=== PATIENT | female | born 1945 ===

== ENCOUNTER 2022-02-20 10:34 | Inpatient (IN) | payer MEDICAID, MEDICARE ==
[2022-02-20] MEDS ORDERED: traZODone 50 MG TAB PO SCH (22:00)
[2022-02-20] MEDS: MELATONIN 5 MG TAB PO PRN (22:28)
--- NOTE | 2022-02-21 08:28 | History and Physical Report ---
GP History & Physical - History of Present Illness Date of admission: 02/20/22 Date of Examination: 02/21/22 Reason for Admission: Danger to self, Failure of Outpatient Treatment, Severe anxiety/depression History of Present Illness: The patient was seen today. She appears down and anxious. She is crying. She says she is not doing well. The patient says "my mind is racing." She also states she is hearing "a lot of noise and rumbling." The patient says she feels like she "should be ." She denies illicit drug use, and nicotine. The patient says she drinks occasionally. PAST PSYCHIATRIC HISTORY: Diagnoses: Major depressive disorder Suicide attempts or Self-harm behavior: Denies Prior psychiatric hospitalizations: Denies Substance Abuse history: Denies Previous psychiatric medications tried: xanax Outpatient treatment: Unknown PAST MEDICAL HISTORY: HTN Family Psychiatric History: None reported or documented SOCIAL HISTORY Marital Status: Living Arrangements: in daughter's basement Employment Status: Retired Access to guns/weapons: Denies Education: high school History of Abuse:Denies Legal History: Denies REVIEW OF SYSTEMS Constitutional: Negative for weight loss ENT: Negative for stridor Respiratory: Negative for cough or hemoptysis All other systems reviewed and are negative MENTAL STATUS EXAMINATION General Appearance and Behavior: Age appropriate, wearing appropriate clothes, cooperative, polite with questioning, good eye contact Cooperation: cooperative Psychomotor Behavior: Psychomotor normal Mood: Depressed, anxious Affect and affective range: congruent with stated affect, tearful Thought Process: Goal directed Thought Content: Reality oriented Speech: Normal volume, Regular rate and rhythm Suicidal Ideation: Yes Homicidal Ideation: Denies Hallucination: Denies Delusions: Auditory Impulse Control: Limited Insight and Judgment: Limited Memory: Intact Attention: distracted Orientation: Alert and oriented Diagnoses: Major Depressive Disorder Generalized Anxiety Disorder Treatment Plan Patient admitted for inpatient psychiatric evaluation, medication adjustment and close monitoring The patient's behavior, mood, sleep and appetite will be closely monitored. Patient enrolled in individual and group therapeutic sessions and encouraged to attend. Patient provided with a safe and structured environment. Patient's physical health needs will be addressed by the Hospitalist. Hospit [place] Consulted Labs including CBC, CMP, Lipid profile and Hemoglobin A1C levels ordered for baseline reference Social Assessment will be completed and the Podiatric Physician will work with patient and family to ensure a suitable and safe disposition Medication adjustment will be made as clinically indicated Continue home meds Start Buspar 7.5mg po BID Start Mirtazepine 7.5mg po qhs Start Abilify 5mg po daily Usual Wellness Religious/Preservation: - Start Trazodone 50 mg po QHS & 50 mg po QHS PRN between 10 PM & 2 AM for insomnia - Start Melatonin 5 mg po QHS to promote circadian rhythm The patient agreed on the treatment plan, understood the risk, benefit, alternative treatment, potential consequence of no treatment, and gave informed consent. Estimated days: 7 Post hospital care: primary care provider, psychiatric provider Case staffed with Dr. You Legal Status: Voluntary Reaction to Hospitalization: Accepting Medications and Allergies Allergies Allergy/AdvReac Type Severity Reaction Status Date / Time No Known Allergies Allergy Unverified 02/20/22 10:38 Home Medications Medication Instructions Recorded Confirmed Last Taken Type ALPRAZolam [Xanax TAB] 0.25 mg PO Q6HR PRN 02/20/22 02/20/22 Unknown History Escitalopram [Lexapro] 20 mg PO DAILY 02/20/22 02/20/22 Unknown History One-Daily Fvcrt-Rtw-Gjjk Tab 1 mg PO DAILY 02/20/22 02/20/22 Unknown History Vitamin D3 50 mcg PO DAILY 02/20/22 02/20/22 Unknown History amLODIPine [Norvasc] 10 mg PO DAILY 02/20/22 02/20/22 Unknown History Active Meds: Active Medications Alprazolam (Alprazolam 0.25 Mg Tab) 0.25 mg PO Q6H PRN PRN Reason: Anxiety Melatonin (Melatonin 5 Mg Tab) 5 mg PO QHS PRN PRN Reason: Sleep Last Admin: 02/20/22 22:28 Dose: 5 mg Trazodone HCl (Trazodone 50 Mg Tab) 50 mg PO QHS [facility] Last Admin: 02/20/22 22:28 Dose: 50 mg Results - Results Labs/Vitals: Last Vital Signs Temp 98.3 F 02/20/22 19:53 Pulse 65 02/20/22 19:53 Resp 18 02/20/22 19:53 BP 174/89 02/20/22 19:53 Pulse Ox 97 02/20/22 23:49 Physical Examination - Constitutional Vitals: Vital Signs Temp Pulse Resp BP Pulse Ox 98.3 F 65 18 174/89 97 02/20/22 19:53 02/20/22 19:53 02/20/22 19:53 02/20/22 19:53 02/20/22 23:49 Temperature -Last 24 Hours Temperature 98.3 F Temperature 98.6 F Mental Status Exam - Vital signs Last Vital Signs Temp 98.3 F 02/20/22 19:53 Pulse 65 02/20/22 19:53 Resp 18 02/20/22 19:53 BP 174/89 02/20/22 19:53 Pulse Ox 97 02/20/22 23:49 Physician Certification - Certification Statement Physician Certification Statement: This is an acknowledgement statement that SHMUEL BABB is a 76 year old F who requires inpatient psychiatric admission for treatment which could reasonably be expected to improve the patient's condition for Estimated period of time patient will need to remain in the hospital: [ ] Plan for post-hospital care: [ ]
[2022-02-21] MEDS: ALPRAZolam 0.25 MG TAB PO PRN (08:47)
[2022-02-21] MEDS: ARIPiprazole 5 MG TAB PO SCH (09:00)
[2022-02-21] MEDS: busPIRone 5 MG TAB PO SCH ×2 (09:00→21:12)
[2022-02-21] MEDS: CHOLECALCIFEROL (VIT D3) 1000 UNIT (25 mcg) TAB PO SCH (09:00)
[2022-02-21] MEDS: MULTIVITAMINS,THER W-MINERALS TAB PO SCH (09:00)
[2022-02-21] MEDS: amLODIPine 10 MG TAB PO SCH (09:01)
[2022-02-21] MEDS ORDERED: ESCITALOPRAM 10 MG TAB PO SCH (10:00)
[2022-02-21] MEDS: MELATONIN 5 MG TAB PO PRN (20:52)
[2022-02-21] MEDS: MIRTAZAPINE 15 MG TAB PO SCH (21:12)
--- NOTE | 2022-02-22 09:23 | Progress Note ---
Subjective Date of service: 02/22/22 Principal diagnosis: Major Depressive Disorder Subjective Comment: The patient was seen today. She says she feels a little better with the added meds. However, she says she just doesn't feel the Lexapro is longer effective. The patient says she's still having the racing thoughts. and feels depressed. She still endorses suicidal thoughts with no plan. She denies hallucinations. REVIEW OF SYSTEMS Constitutional: Negative for weight loss ENT: Negative for stridor Respiratory: Negative for cough or hemoptysis All other systems reviewed and are negative MENTAL STATUS EXAMINATION General Appearance and Behavior: Age appropriate, wearing appropriate clothes, cooperative, polite with questioning, good eye contact Cooperation: cooperative Psychomotor Behavior: Psychomotor normal Mood: Depressed, anxious Affect and affective range: congruent with stated affect, tearful Thought Process: Goal directed Thought Content: Reality oriented Speech: Normal volume, Regular rate and rhythm Suicidal Ideation: Yes Homicidal Ideation: Denies Hallucination: Denies Delusions: Auditory Impulse Control: Limited Insight and Judgment: Limited Memory: Intact Attention: distracted Orientation: Alert and oriented Diagnoses: Major Depressive Disorder Generalized Anxiety Disorder Treatment Plan Patient admitted for inpatient psychiatric evaluation, medication adjustment and close monitoring The patient's behavior, mood, sleep and appetite will be closely monitored. Patient enrolled in individual and group therapeutic sessions and encouraged to attend. Patient provided with a safe and structured environment. Patient's physical health needs will be addressed by the Hospitalist. Hospitalist Consulted Labs including CBC, CMP, Lipid profile and Hemoglobin A1C levels ordered for baseline reference Social Assessment will be completed and the Service Superintendent will work with patient and family to ensure a suitable and safe disposition Medication adjustment will be made as clinically indicated Wean Lexapro to 10mg po daily (will wean the patient off) Start Prozac 10mg po daily Buspar 7.5mg po BID Mirtazepine 7.5mg po qhs Abilify 5mg po daily Usual Wellness Jehovah'S Witness/Preservation: - Start Trazodone 50 mg po QHS & 50 mg po QHS PRN between 10 PM & 2 AM for insomnia - Start Melatonin 5 mg po QHS to promote circadian rhythm The patient agreed on the treatment plan, understood the risk, benefit, alternative treatment, potential consequence of no treatment, and gave informed consent. Estimated days: 7 Post hospital care: primary care provider, psychiatric provider Case staffed with Dr. You Medications and Allergies Allergies Allergy/AdvReac Type Severity Reaction Status Date / Time No Known Allergies Allergy Unverified 02/20/22 10:38 Home Medications Medication Instructions Recorded Confirmed Last Taken Type ALPRAZolam [Xanax TAB] 0.25 mg PO Q6HR PRN 02/20/22 02/20/22 Unknown History Escitalopram [Lexapro] 20 mg PO DAILY 02/20/22 02/20/22 Unknown History One-Daily Fkptb-Ndm-Nfwj Tab 1 mg PO DAILY 02/20/22 02/20/22 Unknown History Vitamin D3 50 mcg PO DAILY 02/20/22 02/20/22 Unknown History amLODIPine [Norvasc] 10 mg PO DAILY 02/20/22 02/20/22 Unknown History Active Meds: Active Medications Alprazolam (Alprazolam 0.25 Mg Tab) 0.25 mg PO Q6H PRN PRN Reason: Anxiety Last Admin: 02/21/22 08:47 Dose: 0.25 mg Amlodipine Besylate (Amlodipine 10 Mg Tab) 10 mg PO DAILY [facility] Last Admin: 02/21/22 09:01 Dose: 10 mg Aripiprazole (Aripiprazole 5 Mg Tab) 5 mg PO QDAY [facility] Last Admin: 02/21/22 09:00 Dose: 5 mg Buspirone HCl (Buspirone 5 Mg Tab) 7.5 mg PO BID [facility] Last Admin: 02/21/22 21:12 Dose: 7.5 mg Cholecalciferol (Cholecalciferol (Vit D3) 1000 Unit (25 Mcg) Tab) 2,000 unit PO DAILY [facility] Last Admin: 02/21/22 09:00 Dose: 2,000 unit Escitalopram Oxalate (Escitalopram 10 Mg Tab) 20 mg PO DAILY [facility] Last Admin: 02/21/22 09:00 Dose: 20 mg Melatonin (Melatonin 5 Mg Tab) 5 mg PO QHS PRN PRN Reason: Sleep Last Admin: 02/21/22 20:52 Dose: 5 mg Mirtazapine (Mirtazapine 15 Mg Tab) 7.5 mg PO QHS [facility] Last Admin: 02/21/22 21:12 Dose: 7.5 mg Multivitamins/Minerals (Multivitamins,Ther W-Minerals Tab) 1 each PO DAILY [facility] Last Admin: 02/21/22 09:00 Dose: 1 each Results - Results Labs/Vitals: Last Vital Signs Temp 98.0 F 02/21/22 08:07 Pulse 63 02/21/22 19:27 Resp 18 02/21/22 23:00 BP 157/87 02/21/22 19:27 Pulse Ox 97 02/22/22 08:38
[2022-02-22] MEDS: busPIRone 5 MG TAB PO SCH ×2 (09:50→21:12)
[2022-02-22] MEDS: CHOLECALCIFEROL (VIT D3) 1000 UNIT (25 mcg) TAB PO SCH (09:50)
[2022-02-22] MEDS: MULTIVITAMINS,THER W-MINERALS TAB PO SCH (09:50)
[2022-02-22] MEDS: ARIPiprazole 5 MG TAB PO SCH (09:51)
[2022-02-22] MEDS: amLODIPine 10 MG TAB PO SCH (09:51)
[2022-02-22] MEDS: ESCITALOPRAM 10 MG TAB PO SCH (09:53)
[2022-02-22] MEDS: FLUoxetine 10 MG TAB PO SCH (10:05)
[2022-02-22] MEDS: MELATONIN 5 MG TAB PO PRN (20:39)
[2022-02-22] MEDS: MIRTAZAPINE 15 MG TAB PO SCH (21:11)
[2022-02-23] MEDS: busPIRone 5 MG TAB PO SCH (09:40)
[2022-02-23] MEDS: amLODIPine 10 MG TAB PO SCH (09:42)
[2022-02-23] MEDS: ARIPiprazole 5 MG TAB PO SCH (09:43)
[2022-02-23] MEDS: FLUoxetine 10 MG TAB PO SCH ×2 (09:43→12:16)
[2022-02-23] MEDS: ESCITALOPRAM 10 MG TAB PO SCH ×2 (09:43→09:49)
[2022-02-23] MEDS: CHOLECALCIFEROL (VIT D3) 1000 UNIT (25 mcg) TAB PO SCH (09:43)
[2022-02-23] MEDS: MULTIVITAMINS,THER W-MINERALS TAB PO SCH (09:44)
--- NOTE | 2022-02-23 09:54 | Progress Note ---
Subjective Date of service: 02/23/22 Principal diagnosis: Major Depressive Disorder Subjective Comment: The patient was seen today. The patient says she's still depressed and having racing thoughts. She says she still hears the random sounds. She denies SI/HI. REVIEW OF SYSTEMS Constitutional: Negative for weight loss ENT: Negative for stridor Respiratory: Negative for cough or hemoptysis All other systems reviewed and are negative MENTAL STATUS EXAMINATION General Appearance and Behavior: Age appropriate, wearing appropriate clothes, cooperative, polite with questioning, good eye contact Cooperation: cooperative Psychomotor Behavior: Psychomotor normal Mood: Depressed, anxious Affect and affective range: congruent with stated affect, tearful Thought Process: Goal directed Thought Content: Reality oriented Speech: Normal volume, Regular rate and rhythm Suicidal Ideation: Yes Homicidal Ideation: Denies Hallucination: Denies Delusions: Auditory Impulse Control: Limited Insight and Judgment: Limited Memory: Intact Attention: distracted Orientation: Alert and oriented Diagnoses: Major Depressive Disorder Generalized Anxiety Disorder Treatment Plan Patient admitted for inpatient psychiatric evaluation, medication adjustment and close monitoring The patient's behavior, mood, sleep and appetite will be closely monitored. Patient enrolled in individual and group therapeutic sessions and encouraged to attend. Patient provided with a safe and structured environment. Patient's physical health needs will be addressed by the Hospitalist. Hospitalist Consulted Labs including CBC, CMP, Lipid profile and Hemoglobin A1C levels ordered for baseline reference Social Assessment will be completed and the Ballast Cleaning Machine Operator will work with patient and family to ensure a suitable and safe disposition Medication adjustment will be made as clinically indicated d/c Lexapro Increase Prozac 30mg po daily Increase Buspar 10mg po BID Mirtazepine 7.5mg po qhs Increase Abilify 10mg po daily Usual Wellness Congregational/Preservation: - Start Trazodone 50 mg po QHS & 50 mg po QHS PRN between 10 PM & 2 AM for insomnia - Start Melatonin 5 mg po QHS to promote circadian rhythm The patient agreed on the treatment plan, understood the risk, benefit, alternative treatment, potential consequence of no treatment, and gave informed consent. Estimated days: 7 Post hospital care: primary care provider, psychiatric provider Case staffed with Dr. You Medications and Allergies Allergies Allergy/AdvReac Type Severity Reaction Status Date / Time No Known Allergies Allergy Unverified 02/20/22 10:38 Home Medications Medication Instructions Recorded Confirmed Last Taken Type ALPRAZolam [Xanax TAB] 0.25 mg PO Q6HR PRN 02/20/22 02/20/22 Unknown History Escitalopram [Lexapro] 20 mg PO DAILY 02/20/22 02/20/22 Unknown History One-Daily Pmjcl-Stg-Zgxc Tab 1 mg PO DAILY 02/20/22 02/20/22 Unknown History Vitamin D3 50 mcg PO DAILY 02/20/22 02/20/22 Unknown History amLODIPine [Norvasc] 10 mg PO DAILY 02/20/22 02/20/22 Unknown History Active Meds: Active Medications Alprazolam (Alprazolam 0.25 Mg Tab) 0.25 mg PO Q6H PRN PRN Reason: Anxiety Last Admin: 02/21/22 08:47 Dose: 0.25 mg Amlodipine Besylate (Amlodipine 10 Mg Tab) 10 mg PO DAILY [facility] Last Admin: 02/23/22 09:42 Dose: 10 mg Aripiprazole (Aripiprazole 5 Mg Tab) 5 mg PO QDAY [facility] Last Admin: 02/23/22 09:43 Dose: 5 mg Buspirone HCl (Buspirone 5 Mg Tab) 7.5 mg PO BID [facility] Last Admin: 02/23/22 09:40 Dose: 7.5 mg Cholecalciferol (Cholecalciferol (Vit D3) 1000 Unit (25 Mcg) Tab) 2,000 unit PO DAILY [facility] Last Admin: 02/23/22 09:43 Dose: 2,000 unit Escitalopram Oxalate (Escitalopram 10 Mg Tab) 10 mg PO QDAY [facility] Last Admin: 02/23/22 09:49 Dose: Not Given Fluoxetine HCl (Fluoxetine 10 Mg Tab) 10 mg PO QDAY [facility] Last Admin: 02/23/22 09:43 Dose: 10 mg Melatonin (Melatonin 5 Mg Tab) 5 mg PO QHS PRN PRN Reason: Sleep Last Admin: 02/22/22 20:39 Dose: 5 mg Mirtazapine (Mirtazapine 15 Mg Tab) 7.5 mg PO QHS [facility] Last Admin: 02/22/22 21:11 Dose: 7.5 mg Multivitamins/Minerals (Multivitamins,Ther W-Minerals Tab) 1 each PO DAILY [facility] Last Admin: 02/23/22 09:44 Dose: 1 each Results - Results Labs/Vitals: Last Vital Signs Temp 98.3 F 02/23/22 07:30 Pulse 79 02/23/22 09:42 Resp 16 02/23/22 07:30 BP 154/91 02/23/22 09:42 Pulse Ox 96 02/23/22 07:30
[2022-02-23] MEDS ORDERED: ARIPiprazole 10 MG TAB PO SCH (10:00)
[2022-02-23] MEDS: busPIRone 10 MG TAB PO SCH ×2 (11:37→21:15)
[2022-02-23] MEDS ORDERED: FLUoxetine 10 MG TAB PO ONE (12:00)
[2022-02-23] MEDS ORDERED: ARIPiprazole 5 MG TAB PO ONE (12:00)
[2022-02-23] MEDS ORDERED: MAGNESIUM HYDROXIDE (MOM) ORAL LIQD UDC PO PRN (20:19)
[2022-02-23] MEDS: MIRTAZAPINE 15 MG TAB PO SCH (21:15)
[2022-02-23] MEDS: MELATONIN 5 MG TAB PO PRN (21:15)
[2022-02-24] MEDS ORDERED: ARIPiprazole 10 MG TAB PO SCH (09:27)
--- NOTE | 2022-02-24 09:27 | Progress Note ---
Subjective Date of service: 02/24/22 Principal diagnosis: Major Depressive Disorder Subjective Comment: The patient was seen today. She says she did not sleep well. The patient endorses hearing voices saying "run, run, run." She denies SI/HI. REVIEW OF SYSTEMS Constitutional: Negative for weight loss ENT: Negative for stridor Respiratory: Negative for cough or hemoptysis All other systems reviewed and are negative MENTAL STATUS EXAMINATION General Appearance and Behavior: Age appropriate, wearing appropriate clothes, cooperative, polite with questioning, good eye contact Cooperation: cooperative Psychomotor Behavior: Psychomotor normal Mood: Depressed, anxious Affect and affective range: congruent with stated affect, tearful Thought Process: Goal directed Thought Content: Reality oriented Speech: Normal volume, Regular rate and rhythm Suicidal Ideation: Denies Homicidal Ideation: Denies Hallucination: Denies Delusions: Auditory Impulse Control: Limited Insight and Judgment: Limited Memory: Intact Attention: distracted Orientation: Alert and oriented Diagnoses: Major Depressive Disorder Generalized Anxiety Disorder Treatment Plan Patient admitted for inpatient psychiatric evaluation, medication adjustment and close monitoring The patient's behavior, mood, sleep and appetite will be closely monitored. Patient enrolled in individual and group therapeutic sessions and encouraged to attend. Patient provided with a safe and structured environment. Patient's physical health needs will be addressed by the Hospitalist. Hospitalist Consulted Labs including CBC, CMP, Lipid profile and Hemoglobin A1C levels ordered for baseline reference Social Assessment will be completed and the Pneumatic Systems Operator will work with patient and family to ensure a suitable and safe disposition Medication adjustment will be made as clinically indicated Increased Mirtazepine 15mg po qhs Increased Abilify 15mg po daily Usual Wellness Yarsanism/Preservation: - Start Trazodone 50 mg po QHS & 50 mg po QHS PRN between 10 PM & 2 AM for insomnia - Start Melatonin 5 mg po QHS to promote circadian rhythm The patient agreed on the treatment plan, understood the risk, benefit, alternative treatment, potential consequence of no treatment, and gave informed consent. Estimated days: 7 Post hospital care: primary care provider, psychiatric provider Case staffed with Dr. You Medications and Allergies Allergies Allergy/AdvReac Type Severity Reaction Status Date / Time No Known Allergies Allergy Unverified 02/20/22 10:38 Home Medications Medication Instructions Recorded Confirmed Last Taken Type ALPRAZolam [Xanax TAB] 0.25 mg PO Q6HR PRN 02/20/22 02/20/22 Unknown History Escitalopram [Lexapro] 20 mg PO DAILY 02/20/22 02/20/22 Unknown History One-Daily Athdh-Jwe-Mccl Tab 1 mg PO DAILY 02/20/22 02/20/22 Unknown History Vitamin D3 50 mcg PO DAILY 02/20/22 02/20/22 Unknown History amLODIPine [Norvasc] 10 mg PO DAILY 02/20/22 02/20/22 Unknown History Active Meds: Active Medications Alprazolam (Alprazolam 0.25 Mg Tab) 0.25 mg PO Q6H PRN PRN Reason: Anxiety Last Admin: 02/21/22 08:47 Dose: 0.25 mg Amlodipine Besylate (Amlodipine 10 Mg Tab) 10 mg PO DAILY [facility] Last Admin: 02/23/22 09:42 Dose: 10 mg Aripiprazole (Aripiprazole 10 Mg Tab) 10 mg PO QDAY [facility] Last Admin: 02/23/22 12:16 Dose: Not Given Buspirone HCl (Buspirone 10 Mg Tab) 10 mg PO BID [facility] Last Admin: 02/23/22 21:15 Dose: 10 mg Cholecalciferol (Cholecalciferol (Vit D3) 1000 Unit (25 Mcg) Tab) 2,000 unit PO DAILY [facility] Last Admin: 02/23/22 09:43 Dose: 2,000 unit Fluoxetine HCl (Fluoxetine 10 Mg Tab) 30 mg PO QDAY [facility] Last Admin: 02/23/22 12:16 Dose: Not Given Magnesium Hydroxide (Magnesium Hydroxide (Mom) Oral Liqd Udc) 30 ml PO QDAY PRN PRN Reason: Constipation Last Admin: 02/23/22 20:58 Dose: 30 ml Melatonin (Melatonin 5 Mg Tab) 5 mg PO QHS PRN PRN Reason: Sleep Last Admin: 02/23/22 21:15 Dose: 5 mg Mirtazapine (Mirtazapine 15 Mg Tab) 7.5 mg PO QHS [facility] Last Admin: 02/23/22 21:15 Dose: 7.5 mg Multivitamins/Minerals (Multivitamins,Ther W-Minerals Tab) 1 each PO DAILY [facility] Last Admin: 02/23/22 09:44 Dose: 1 each Results - Results Labs/Vitals: Last Vital Signs Temp 99.1 F 02/23/22 19:49 Pulse 66 02/23/22 19:49 Resp 20 02/23/22 19:49 BP 156/86 02/23/22 19:49 Pulse Ox 96 02/23/22 19:49
[2022-02-24] MEDS: ARIPiprazole 15 MG TAB PO SCH (09:48)
[2022-02-24] MEDS: CHOLECALCIFEROL (VIT D3) 1000 UNIT (25 mcg) TAB PO SCH (09:49)
[2022-02-24] MEDS: busPIRone 10 MG TAB PO SCH ×2 (09:49→21:35)
[2022-02-24] MEDS: FLUoxetine 10 MG TAB PO SCH (09:49)
[2022-02-24] MEDS: amLODIPine 10 MG TAB PO SCH (09:49)
[2022-02-24] MEDS: MULTIVITAMINS,THER W-MINERALS TAB PO SCH (09:49)
--- NOTE | 2022-02-24 12:50 | Consultation ---
History of Present Illness - Reason for Consult Consult date: 02/23/22 Medical Management Requesting physician: MARGO BERMEO - History of Present Illness 76 YO Female with Vascular Dementia with Behavioral disturbance, Cerebral Atherosclerosis, Obesity Hypoventilation Syndrome, HTN, KEVIN, MDD admitted to [facility] for psychiatric stabilization. Consult placed by Dr. Bermeo for medical management. Patient seen and evaluated in the recreation room. Patient denies fever, chills, chest pain, palpitation, productive cough, skin rash, recent contact, known exposure to COVID-19. Patient resting calmly. No reported nursing events. Patient appears to be at baseline level of cognition and function. Past History Past Medical History: hypertension, other (See HPI) Past Surgical History: No surgical history, Other (Reviewed) Social history: single. denies: smoking, alcohol abuse, prescription drug abuse Family history: hypertension Medications and Allergies Allergies Allergy/AdvReac Type Severity Reaction Status Date / Time No Known Allergies Allergy Unverified 02/20/22 10:38 Home Medications Medication Instructions Recorded Confirmed Last Taken Type ALPRAZolam [Xanax TAB] 0.25 mg PO Q6HR PRN 02/20/22 02/20/22 Unknown History Escitalopram [Lexapro] 20 mg PO DAILY 02/20/22 02/20/22 Unknown History One-Daily Bkaon-Ntx-Fzcs Tab 1 mg PO DAILY 02/20/22 02/20/22 Unknown History Vitamin D3 50 mcg PO DAILY 02/20/22 02/20/22 Unknown History amLODIPine [Norvasc] 10 mg PO DAILY 02/20/22 02/20/22 Unknown History Active Meds: Active Medications Alprazolam (Alprazolam 0.25 Mg Tab) 0.25 mg PO Q6H PRN PRN Reason: Anxiety Last Admin: 02/21/22 08:47 Dose: 0.25 mg Amlodipine Besylate (Amlodipine 10 Mg Tab) 10 mg PO DAILY [facility] Last Admin: 02/24/22 09:49 Dose: 10 mg Aripiprazole (Aripiprazole 15 Mg Tab) 15 mg PO QDAY [facility] Last Admin: 02/24/22 09:48 Dose: 15 mg Buspirone HCl (Buspirone 10 Mg Tab) 10 mg PO BID [facility] Last Admin: 02/24/22 09:49 Dose: 10 mg Cholecalciferol (Cholecalciferol (Vit D3) 1000 Unit (25 Mcg) Tab) 2,000 unit PO DAILY [facility] Last Admin: 02/24/22 09:49 Dose: 2,000 unit Fluoxetine HCl (Fluoxetine 10 Mg Tab) 30 mg PO QDAY [facility] Last Admin: 02/24/22 09:49 Dose: 30 mg Magnesium Hydroxide (Magnesium Hydroxide (Mom) Oral Liqd Udc) 30 ml PO QDAY PRN PRN Reason: Constipation Last Admin: 02/23/22 20:58 Dose: 30 ml Melatonin (Melatonin 5 Mg Tab) 5 mg PO QHS PRN PRN Reason: Sleep Last Admin: 02/23/22 21:15 Dose: 5 mg Mirtazapine (Mirtazapine 15 Mg Tab) 15 mg PO QHS [facility] Multivitamins/Minerals (Multivitamins,Ther W-Minerals Tab) 1 each PO DAILY [facility] Last Admin: 02/24/22 09:49 Dose: 1 each Review of Systems Constitutional: no weight loss, no weight gain, no fever, no chills Ears, nose, mouth and throat: no ear pain, no ear discharge, no tinnitis, no decreased hearing, no nose pain Breasts: no change in shape, no swelling, no mass Cardiovascular: no chest pain, no orthopnea, no palpitations, no rapid/irregular heart beat, no edema, no syncope Respiratory: no cough, no cough with sputum, no hemoptysis, no dyspnea on exertion Gastrointestinal: no nausea, no vomiting, no diarrhea, no constipation, no change in bowel habits Genitourinary Female: no pelvic pain, no flank pain, no dysuria, no urgency, no stress incontinence Rectal: no pain, no incontinence, no bleeding Musculoskeletal: no neck stiffness, no neck pain, no shooting arm pain, no arm numbness/tingling, no low back pain Integumentary: no rash, no pruritis, no redness, no sores, no wounds Neurological: no head injury, no transient paralysis, no paralysis, no parathesias, no numbness, no tingling, no seizures Psychiatric: depression, anxiety attacks, irritability, sadness/tearfullness, mood swings Endocrine: no cold intolerance, no heat intolerance, no polyphagia, no excessive thirst, no polydipsia, no polyuria Hematologic/Lymphatic: no easy bruising, no easy bleeding Allergic/Immunologic: no urticaria, no allergic rhinitis, no wheezing Exam - Constitutional Vitals: Temp Pulse Resp BP Pulse Ox 99.0 F 71 18 113/75 97 02/24/22 08:14 02/24/22 09:49 02/24/22 08:14 02/24/22 09:49 02/24/22 08:14 General appearance: Present: mild distress, obese - EENT Eyes: Present: PERRL ENT: hearing intact, clear oral mucosa - Neck Neck: Present: supple, normal ROM - Respiratory Respiratory effort: normal Respiratory: bilateral: CTA - Cardiovascular Heart Sounds: Present: S1 & S2. Absent: rub, click - Extremities Extremities: pulses symmetrical, No edema Peripheral Pulses: within normal limits - Abdominal General gastrointestinal: Present: soft, non-tender, non-distended, normal bowel sounds Female genitourinary: Present: normal - Integumentary Integumentary: Present: clear, warm, dry - Musculoskeletal Musculoskeletal: gait normal, strength equal bilaterally - Psychiatric Psychiatric: appropriate mood/affect, intact judgment & insight - Neurologic Neurologic: CNII-XII intact, moves all extremities Assessment and Plan - Patient Problems (1) Vascular dementia with behavioral disturbance Current Visit: Yes Status: Acute Plan to address problem: Verbal prompting, verbal redirection, benzodiazepine therapy as clinically indicated. (2) Cerebral atherosclerosis Current Visit: Yes Status: Acute Plan to address problem: Risk factor reduction, antiplatelet therapy as clinically indicated. (3) Hypertension Current Visit: Yes Status: Acute Qualifiers: Hypertension type: primary hypertension Qualified Code(s): I10 - Essential (primary) hypertension Plan to address problem: Monitor blood pressure every shift, continue medical management. (4) Obesity hypoventilation syndrome Current Visit: Yes Status: Acute Plan to address problem: Balanced diet, increase physical activity at discharge, outpatient pulmonary follow-up for sleep study. (5) KEVIN (generalized anxiety disorder) Current Visit: Yes Status: Acute Plan to address problem: Verbal prompting, benzodiazepine therapy as clinically indicated. (6) Major depressive disorder Current Visit: Yes Status: Acute Qualifiers: Major depression episode severity: unspecified Plan to address problem: Continue medical management, supportive care. (7) Advance care planning Current Visit: Yes Status: Acute Plan to address problem: Disease education data, care plan discussed, diagnoses discussed, prognosis discussed, patient is full code. Patient acknowledged understanding and agreement with care plan, +30 minutes. (8) Preventative health care Current Visit: Yes Status: Acute Plan to address problem: Patient counseled regarding risk factor reduction, balanced diet, increase physical activity discharge, medication compliance, outpatient follow-up with primary care physician for all age and risk factor appropriate screening test. +30 minutes.
[2022-02-24] MEDS: MIRTAZAPINE 15 MG TAB PO SCH (21:35)
[2022-02-24] MEDS: MELATONIN 5 MG TAB PO PRN (21:38)
[2022-02-25] MEDS: FLUoxetine 10 MG TAB PO SCH ×2 (09:35→09:44)
[2022-02-25] MEDS: MULTIVITAMINS,THER W-MINERALS TAB PO SCH (09:37)
[2022-02-25] MEDS: amLODIPine 10 MG TAB PO SCH (09:37)
[2022-02-25] MEDS: busPIRone 10 MG TAB PO SCH ×2 (09:38→21:03)
[2022-02-25] MEDS: ARIPiprazole 15 MG TAB PO SCH (09:38)
[2022-02-25] MEDS: CHOLECALCIFEROL (VIT D3) 1000 UNIT (25 mcg) TAB PO SCH (09:39)
--- NOTE | 2022-02-25 10:59 | Progress Note ---
Subjective Date of service: 02/25/22 Principal diagnosis: Major Depressive Disorder Subjective Comment: The patient was seen today. She says she's starting to feel better. She denies SI/HI or hallucinations. The patient says "I'm just not sleeping well." REVIEW OF SYSTEMS Constitutional: Negative for weight loss ENT: Negative for stridor Respiratory: Negative for cough or hemoptysis All other systems reviewed and are negative MENTAL STATUS EXAMINATION General Appearance and Behavior: Age appropriate, wearing appropriate clothes, cooperative, polite with questioning, good eye contact Cooperation: cooperative Psychomotor Behavior: Psychomotor normal Mood: Depressed, anxious Affect and affective range: congruent with stated affect, tearful Thought Process: Goal directed Thought Content: Reality oriented Speech: Normal volume, Regular rate and rhythm Suicidal Ideation: Denies Homicidal Ideation: Denies Hallucination: Denies Delusions: Denies Impulse Control: Limited Insight and Judgment: Limited Memory: Intact Attention: distracted Orientation: Alert and oriented Diagnoses: Major Depressive Disorder Generalized Anxiety Disorder Treatment Plan Patient admitted for inpatient psychiatric evaluation, medication adjustment and close monitoring The patient's behavior, mood, sleep and appetite will be closely monitored. Patient enrolled in individual and group therapeutic sessions and encouraged to attend. Patient provided with a safe and structured environment. Patient's physical health needs will be addressed by the Hospitalist. Hospitalist Consulted Labs including CBC, CMP, Lipid profile and Hemoglobin A1C levels ordered for baseline reference Social Assessment will be completed and the Portable Irrigation Operator will work with patient and family to ensure a suitable and safe disposition Medication adjustment will be made as clinically indicated Increase Melatonin 10mg po qhs prn insomnia The patient agreed on the treatment plan, understood the risk, benefit, alternative treatment, potential consequence of no treatment, and gave informed consent. Estimated days: 7 Post hospital care: primary care provider, psychiatric provider Case staffed with Dr. You Medications and Allergies Allergies Allergy/AdvReac Type Severity Reaction Status Date / Time No Known Allergies Allergy Unverified 02/20/22 10:38 Home Medications Medication Instructions Recorded Confirmed Last Taken Type ALPRAZolam [Xanax TAB] 0.25 mg PO Q6HR PRN 02/20/22 02/20/22 Unknown History Escitalopram [Lexapro] 20 mg PO DAILY 02/20/22 02/20/22 Unknown History One-Daily Ugfsm-Dcg-Gamc Tab 1 mg PO DAILY 02/20/22 02/20/22 Unknown History Vitamin D3 50 mcg PO DAILY 02/20/22 02/20/22 Unknown History amLODIPine [Norvasc] 10 mg PO DAILY 02/20/22 02/20/22 Unknown History Active Meds: Active Medications Alprazolam (Alprazolam 0.25 Mg Tab) 0.25 mg PO Q6H PRN PRN Reason: Anxiety Last Admin: 02/21/22 08:47 Dose: 0.25 mg Amlodipine Besylate (Amlodipine 10 Mg Tab) 10 mg PO DAILY [facility] Last Admin: 02/25/22 09:37 Dose: 10 mg Aripiprazole (Aripiprazole 15 Mg Tab) 15 mg PO QDAY [facility] Last Admin: 02/25/22 09:38 Dose: 15 mg Buspirone HCl (Buspirone 10 Mg Tab) 10 mg PO BID [facility] Last Admin: 02/25/22 09:38 Dose: 10 mg Cholecalciferol (Cholecalciferol (Vit D3) 1000 Unit (25 Mcg) Tab) 2,000 unit PO DAILY [facility] Last Admin: 02/25/22 09:39 Dose: 2,000 unit Fluoxetine HCl (Fluoxetine 10 Mg Tab) 30 mg PO QDAY [facility] Last Admin: 02/25/22 09:44 Dose: Not Given Magnesium Hydroxide (Magnesium Hydroxide (Mom) Oral Liqd Udc) 30 ml PO QDAY PRN PRN Reason: Constipation Last Admin: 02/23/22 20:58 Dose: 30 ml Melatonin (Melatonin 5 Mg Tab) 5 mg PO QHS PRN PRN Reason: Sleep Last Admin: 02/24/22 21:38 Dose: 5 mg Mirtazapine (Mirtazapine 15 Mg Tab) 15 mg PO QHS [facility] Last Admin: 02/24/22 21:35 Dose: 15 mg Multivitamins/Minerals (Multivitamins,Ther W-Minerals Tab) 1 each PO DAILY [facility] Last Admin: 02/25/22 09:37 Dose: 1 each Results - Results Labs/Vitals: Last Vital Signs Temp 99.1 F 02/24/22 19:01 Pulse 67 02/25/22 09:37 Resp 18 02/24/22 19:01 BP 161/72 02/25/22 09:37 Pulse Ox 97 02/24/22 19:01
[2022-02-25] MEDS: MIRTAZAPINE 15 MG TAB PO SCH (21:03)
[2022-02-25] MEDS ORDERED: MELATONIN 5 MG TAB PO PRN (22:00)
--- NOTE | 2022-02-26 08:50 | Discharge Summary ---
Providers - Providers Date of Admission: 02/20/22 17:16 Date of discharge: 02/26/22 Attending physician: MARGO BERMEO MD 02/23/22 09:51 Consult to Physician [CONS] Routine Comment: Consulting Provider: ATTILA ORTIZ Physician Instructions: Reason For Exam: manage medical condtions Primary care physician: WELD ENGINEER Hospitalization Reason for admission: anxiety, depression Admitting Diagnosis: F33.9 - MAJOR DEPRESSIVE DISORDER, RECURRENT, UNSPECIFIED Hospital course: The patient was provided inpatient psychiatric treatment with safe and supportive care, medication adjustment, adverse effect monitoring, medical evaluations, medical treatments, assessment and psycho-education. The patient's mood, cognition, behavior, moral support are improved and stabilized. St the time of discharge, the patient had no endangering behavior and no debilitating adverse effects. The patient agreed on potential consequences of no treatment and gave informed consent. Disposition: 01 HOME / SELF CARE / HOMELESS Time spent for discharge: 35 Allergies/Adverse Reactions: Allergies No Known Allergies Allergy (Unverified 02/20/22 10:38) Vital Signs: Last Vital Signs Temp 98.7 F 02/25/22 19:22 Pulse 76 02/25/22 19:22 Resp 18 02/25/22 19:22 BP 141/96 02/25/22 19:22 Pulse Ox 92 02/25/22 19:22 Core Measure Documentation - Palliative Care Palliative Care/ Comfort Measures: Not Applicable - Core Measures Any of the following diagnoses?: none Exam - Constitutional Vitals: Temp Pulse Resp BP Pulse Ox 98.7 F 76 18 141/96 92 02/25/22 19:22 02/25/22 19:22 02/25/22 19:22 02/25/22 19:22 02/25/22 19:22 General appearance: Present: no acute distress - EENT Eyes: Present: EOM intact ENT: hearing intact, clear oral mucosa - Neck Neck: Present: supple, normal ROM - Respiratory Respiratory effort: normal Plan Activity: advance as tolerated Weight Bearing Status: Weight Bear as Tolerated Care Plan Goals: Maintain good and stable mental health Plan of Treatment: The patient should be compliant with medications, not to use drugs, and not to drink alcohol. The patient understands that if suicidal ideas, homicidal ideas or any endangering feeling arise, the patient should seek assistance including, but not limited to crisis hotline, and emergency room. Assessment: Major Depressive Disorder Follow up with: PRIMARY CARE,MD [Primary Care Provider] - 7 Days Prescriptions: Melatonin [Melatonin 5MG TAB] 10 mg PO QHS PRN #60 tablet PRN Reason: Sleep Mirtazapine [Remeron 15mg TAB] 15 mg PO QHS #30 tablet ARIPiprazole [Abilify TAB] 15 mg PO QDAY #30 tablet busPIRone [Buspar] 10 mg PO BID #90 tablet
[2022-02-26] MEDS: ARIPiprazole 15 MG TAB PO SCH (09:40)
[2022-02-26] MEDS: amLODIPine 10 MG TAB PO SCH (09:41)
[2022-02-26] MEDS: MULTIVITAMINS,THER W-MINERALS TAB PO SCH (09:42)
[2022-02-26] MEDS: CHOLECALCIFEROL (VIT D3) 1000 UNIT (25 mcg) TAB PO SCH (09:42)
[2022-02-26] MEDS: busPIRone 10 MG TAB PO SCH (09:44)
[2022-02-26 09:45] VITALS: BP 167/92
[2022-02-26] MEDS: FLUoxetine 10 MG TAB PO SCH (09:45)
[2022-02-26] MEDS: ALPRAZolam 0.25 MG TAB PO PRN (12:58)
== END 2022-02-26 03:35 | disposition home or self-care (01) | DRG 885 ==
LOC: UNDOADMIN 10:34 → 3A 10:34 → 5A 17:16
PROVIDERS: ADMIT Psychiatry & Neurology Psychiatry; ATTEND Psychiatry & Neurology Psychiatry
DX: F33.9 Major depressive disorder, recurrent, unspecified (principal); F41.1 Generalized anxiety disorder; I10 Essential (primary) hypertension; F01.51 Vascular dementia, unspecified severity, with behavioral disturbance; E66.2 Morbid (severe) obesity with alveolar hypoventilation; Z68.41 Body mass index [BMI] 40.0-44.9, adult; I67.2 Cerebral atherosclerosis; Z82.49 Family history of ischemic heart disease and other diseases of the circulatory system
CPT/HCPCS: G0378